=== PATIENT | male | born 1965 | race Caucasian/White ===

== ENCOUNTER → 2017-04-10 | Outpatient (REF) | payer MEDICARE | LOC: M SFHCSACK 07:59 | PROVIDERS: ATTEND Physician Assistant | DX: Z13.220 Encounter for screening for lipoid disorders (principal); Z13.21 Encounter for screening for nutritional disorder; Z53.8 Procedure and treatment not carried out for other reasons ==

== ENCOUNTER → 2017-04-24 | Outpatient (REF) | payer MEDICARE ==
[2017-04-24 16:33] LABS: BASO # 0.1 K/mm3 (0.0-0.2); BASO % 0.5 % (0.0-1.0); EOS # 0.2 K/mm3 (0.0-0.50); EOS % 2.1 % (0.0-3.0); LARGE UNSTAINED CELL # 0.2 K/mm3 (0.0-0.4); LARGE UNSTAINED CELL % 1.5 % (0.0-4.0); LYMPH # 3.4 K/mm3 (1.5-4.5); LYMPH % 26.7 % (24.0-44.0); MEAN CORPUSCULAR HEMOGLOBIN 30.9 pg (27.0-33.0); MEAN CORPUSCULAR HGB CONC 34.5 g/dl (32.0-36.5); MEAN CORPUSCULAR VOLUME 89.7 fl (80.0-96.0); MONO # 0.7 K/mm3 (0.0-0.8); NEUTROPHILS # 7.5 K/mm3 (1.8-7.7); NEUTROPHILS % 63.2 % (36.0-66.0); PLATELET COUNT, AUTOMATED 334 k/mm3 (150-450); RED CELL DISTRIBUTION WIDTH 13.4 % (11.5-14.5); WHITE BLOOD COUNT 11.9 K/mm3 (4.0-10.0)
[2017-04-24 16:39] LABS: ALBUMIN 3.5 GM/DL (3.2-5.2); ALBUMIN/GLOBULIN RATIO 1.13 (1.00-1.93); ALKALINE PHOSPHATASE 94 U/L (45-117); ALT/SGPT 15 U/L (12-78); ANION GAP 7 MEQ/L (8-16); AST/SGOT 12 U/L (15-37); BILIRUBIN,TOTAL 0.7 MG/DL (0.2-1.0); BLOOD UREA NITROGEN 11 MG/DL (7-18); CALCIUM LEVEL 8.8 MG/DL (8.5-10.1); CARBON DIOXIDE LEVEL 29 MEQ/L (21-32); CHLORIDE LEVEL 106 MEQ/L (98-107); CHOLESTEROL LEVEL 156 MG/DL (<200); CREATININE FOR GFR 0.89 MG/DL (0.70-1.30); GLOMERULAR FILTRATION RATE > 60.0 (>56); GLUCOSE, FASTING 75 MG/DL (70-105); POTASSIUM SERUM 4.8 MEQ/L (3.5-5.1); SODIUM LEVEL 142 MEQ/L (136-145); TOTAL PROTEIN 6.6 GM/DL (6.4-8.2); TRIGLYCERIDES LEVEL 88 MG/DL (<150)
== END ==
LOC: M SFHCSACK 09:45
PROVIDERS: ATTEND Physician Assistant
DX: Z13.220 Encounter for screening for lipoid disorders (principal); Z13.21 Encounter for screening for nutritional disorder; G25.81 Restless legs syndrome; G43.909 Migraine, unspecified, not intractable, without status migrainosus; F17.200 Nicotine dependence, unspecified, uncomplicated; Z79.899 Other long term (current) drug therapy

== ENCOUNTER → 2018-04-19 | Outpatient (REF) | payer MEDICARE ==
[2018-04-19 14:07] LABS: BASO # 0.1 10^3/uL (0.0-0.2); BASO % 0.4 % (0.0-1.0); EOS # 0.3 10^3/uL (0.0-0.50); EOS % 2.2 % (0.0-3.0); HEMATOCRIT 47.8 % (42.0-52.0); HEMOGLOBIN 16.1 g/dl (13.5-17.5); IMMATURE GRANULOCYTE % 0.2 % (0-3.0); LYMPH # 4.1 10^3/uL (1.5-4.5); LYMPH % 31.5 % (24.0-44.0); MEAN CORPUSCULAR HEMOGLOBIN 30.2 pg (27.0-33.0); MEAN CORPUSCULAR HGB CONC 33.7 g/dl (32.0-36.5); MEAN CORPUSCULAR VOLUME 89.7 fl (80.0-96.0); MONO # 0.8 10^3/uL (0.0-0.8); MONO % 6.5 % (0.0-5.0); NEUTROPHILS # 7.7 10^3/uL (1.8-7.7); NEUTROPHILS % 59.2 % (36.0-66.0); PLATELET COUNT, AUTOMATED 320 10^3/uL (150-450); RED BLOOD COUNT 5.33 10^6/uL (4.30-6.10); RED CELL DISTRIBUTION WIDTH 13.6 % (11.5-14.5)
[2018-04-19 14:41] LABS: ALBUMIN 3.6 GM/DL (3.2-5.2); ALBUMIN/GLOBULIN RATIO 1.03 (1.00-1.93); ALKALINE PHOSPHATASE 98 U/L (45-117); ALT/SGPT 21 U/L (12-78); ANION GAP 6 MEQ/L (8-16); AST/SGOT 16 U/L (7-37); BILIRUBIN,TOTAL 0.6 MG/DL (0.2-1.0); BLOOD UREA NITROGEN 12 MG/DL (7-18); CALCIUM LEVEL 9.1 MG/DL (8.5-10.1); CARBON DIOXIDE LEVEL 29 MEQ/L (21-32); CHLORIDE LEVEL 104 MEQ/L (98-107); CHOLESTEROL LEVEL 159 MG/DL (<200); CHOLESTEROL RISK RATIO 3.785 (<5); CREATININE FOR GFR 0.97 MG/DL (0.70-1.30); GLOMERULAR FILTRATION RATE > 60.0 (>56); GLUCOSE, FASTING 118 MG/DL (70-100); HDL CHOLESTEROL 42 MG/DL (>40); LDL CHOLESTEROL 89.6 MG/DL (<100); NON-HDL-C 117 MG/DL; SODIUM LEVEL 139 MEQ/L (136-145); TOTAL PROTEIN 7.1 GM/DL (6.4-8.2); TRIGLYCERIDES LEVEL 137 MG/DL (<150)
[2018-04-19 14:44] LABS: TOTAL 25(OH) VITAMIN D 40.4 NG/ML (30.0-100.0)
[2018-04-19 14:47] LABS: POTASSIUM SERUM 5.8 MEQ/L (3.5-5.1)
== END ==
LOC: M SFHCSACK 08:23
DX: Z13.0 Encounter for screening for diseases of the blood and blood-forming organs and certain disorders involving the immune mechanism (principal); Z13.220 Encounter for screening for lipoid disorders; Z13.21 Encounter for screening for nutritional disorder; G25.81 Restless legs syndrome; G43.009 Migraine without aura, not intractable, without status migrainosus; F17.200 Nicotine dependence, unspecified, uncomplicated; M51.37 Other intervertebral disc degeneration, lumbosacral region
CPT/HCPCS: 80053

== ENCOUNTER 2018-05-04 12:11 | Emergency (ER) | payer MEDICARE ==
[2018-05-04] MEDS: NS 1,000 ML IV (16:18)
[2018-05-04] MEDS: MORPHINE 4 MG/ML 1ML VIAL/SYRINGE (J2270) IV (16:19)
[2018-05-04] MEDS ORDERED: ONDANSETRON 4MG/2ML VIAL (J2405) As Ordered (16:22)
[2018-05-04 16:31] LABS: BASO # 0.1 10^3/uL (0.0-0.2); BASO % 0.5 % (0.0-1.0); EOS # 0.2 10^3/uL (0.0-0.50); EOS % 2.1 % (0.0-3.0); HEMOGLOBIN 15.9 g/dl (13.5-17.5); IMMATURE GRANULOCYTE % 0.3 % (0-3.0); LYMPH # 3.8 10^3/uL (1.5-4.5); LYMPH % 35.5 % (24.0-44.0); MEAN CORPUSCULAR HEMOGLOBIN 29.4 pg (27.0-33.0); MEAN CORPUSCULAR HGB CONC 33.1 g/dl (32.0-36.5); MEAN CORPUSCULAR VOLUME 88.9 fl (80.0-96.0); MONO # 0.7 10^3/uL (0.0-0.8); NEUTROPHILS # 5.8 10^3/uL (1.8-7.7); NEUTROPHILS % 54.6 % (36.0-66.0); PLATELET COUNT, AUTOMATED 339 10^3/uL (150-450); RED CELL DISTRIBUTION WIDTH 14.2 % (11.5-14.5); WHITE BLOOD COUNT 10.6 10^3/uL (4.0-10.0)
[2018-05-04] MEDS: ONDANSETRON 4MG/2ML VIAL (J2405) IV (16:35)
[2018-05-04 16:59] LABS: ALBUMIN/GLOBULIN RATIO 1.05 (1.00-1.93); ALKALINE PHOSPHATASE 93 U/L (45-117); ALT/SGPT 18 U/L (12-78); ANION GAP 8 MEQ/L (8-16); AST/SGOT 14 U/L (7-37); BILIRUBIN,DIRECT 0.1 MG/DL (0.0-0.2); BILIRUBIN,TOTAL 0.5 MG/DL (0.2-1.0); BLOOD UREA NITROGEN 11 MG/DL (7-18); CALCIUM LEVEL 9.4 MG/DL (8.5-10.1); CARBON DIOXIDE LEVEL 28 MEQ/L (21-32); CHLORIDE LEVEL 103 MEQ/L (98-107); CREATININE FOR GFR 0.84 MG/DL (0.70-1.30); GLOMERULAR FILTRATION RATE > 60.0 (>56); GLUCOSE, FASTING 73 MG/DL (70-100); LIPASE 105 U/L (73-393); SODIUM LEVEL 139 MEQ/L (136-145); TOTAL PROTEIN 7.8 GM/DL (6.4-8.2)
[2018-05-04] MEDS ORDERED: ISOVUE-370 76% 100ML VIAL (Q9967) As Ordered (17:17)
[2018-05-04 17:40] LABS: KETONE, URINE AUTO RFX NEGATIVE (NEGATIVE); LEUKOCYTE ESTERASE UR AUTO RFX NEGATIVE (NEGATIVE); NITRITE, URINE AUTO RFX NEGATIVE (NEGATIVE); RBC, URINE AUTO RFX 2 /HPF (0-3); SPECIFIC GRAVITY UR AUTO RFX 1.005 (1.002-1.035); SQUAM EPITHELIAL CELL UR AURFX 0 /HPF (0-6); WBC, URINE AUTO RFX 0 /HPF (0-3)
[2018-05-04] MEDS: AZITHROMYCIN 250 MG TAB PO (19:15)
== END 2018-05-04 19:16 | disposition home or self-care (01) ==
LOC: M ED 12:11
DX: J18.9 Pneumonia, unspecified organism (principal); M54.5 Low back pain; H81.09 Meniere's disease, unspecified ear; G25.81 Restless legs syndrome; G43.909 Migraine, unspecified, not intractable, without status migrainosus; F17.210 Nicotine dependence, cigarettes, uncomplicated
CPT/HCPCS: J2270

== ENCOUNTER → 2019-04-28 | Outpatient (REF) | payer MEDICARE ==
[~2019-04-28] MED LIST: AZIT-12 PO; NAPR-885; PERC5TAB12 PO; ROPI3TAB3; TIZANIDINE
[2019-04-28 16:12] LABS: BASO % 0.3 % (0.0-1.0); EOS # 0.2 10^3/uL (0.0-0.50); EOS % 1.9 % (0.0-3.0); HEMATOCRIT 50.3 % (42.0-52.0); HEMOGLOBIN 16.4 g/dl (13.5-17.5); LYMPH # 3.5 10^3/uL (1.5-4.5); LYMPH % 29.9 % (24.0-44.0); MEAN CORPUSCULAR HEMOGLOBIN 30.9 pg (27.0-33.0); MEAN CORPUSCULAR HGB CONC 32.6 g/dl (32.0-36.5); MEAN CORPUSCULAR VOLUME 94.9 fl (80.0-96.0); MONO % 8.5 % (0.0-5.0); NEUTROPHILS % 59.1 % (36.0-66.0); PLATELET COUNT, AUTOMATED 368 10^3/uL (150-450); WHITE BLOOD COUNT 11.8 10^3/uL (4.0-10.0)
[2019-04-28 18:26] LABS: HEMOGLOBIN A1c 5.6 %
== END ==
LOC: M LAB REF 15:03
PROVIDERS: ATTEND Physician Assistant
DX: G43.909 Migraine, unspecified, not intractable, without status migrainosus (principal); E78.00 Pure hypercholesterolemia, unspecified; R73.01 Impaired fasting glucose

== ENCOUNTER → 2019-05-04 | Outpatient (REF) | payer MEDICARE ==
[~2019-05-04] MED LIST changes: +PANT40TA3 PO; +ROPI3TAB3 PO
[2019-05-04 16:55] LABS: ALBUMIN 3.4 GM/DL (3.2-5.2); ALT/SGPT 13 U/L (12-78); BILIRUBIN,TOTAL 0.5 MG/DL (0.2-1.0); BLOOD UREA NITROGEN 13 MG/DL (7-18); CARBON DIOXIDE LEVEL 28 MEQ/L (21-32); CHLORIDE LEVEL 109 MEQ/L (98-107); CHOLESTEROL LEVEL 149 MG/DL (<200); CHOLESTEROL RISK RATIO 4.138 (<5); CREATININE FOR GFR 1.04 MG/DL (0.70-1.30); GLOMERULAR FILTRATION RATE > 60.0 (>56); GLUCOSE, FASTING 79 MG/DL (70-100); HDL CHOLESTEROL 36 MG/DL (>40); LDL CHOLESTEROL 97 MG/DL (<100); NON-HDL-C 113 MG/DL; POTASSIUM SERUM 4.6 MEQ/L (3.5-5.1); SODIUM LEVEL 142 MEQ/L (136-145); TOTAL PROTEIN 6.6 GM/DL (6.4-8.2); TRIGLYCERIDES LEVEL 81 MG/DL (<150)
== END ==
LOC: M SFHCSACK 15:46
PROVIDERS: ATTEND Physician Assistant
DX: E78.00 Pure hypercholesterolemia, unspecified (principal)

== ENCOUNTER 2019-05-09 16:52 | Inpatient (IN) | payer MEDICARE ==
[~2019-05-09] VITALS: Ht 167.6 cm; Wt 67.5 kg
[~2019-05-09 16:52] MED LIST changes: -PANT40TA3 PO; -ROPI3TAB3 PO
[2019-05-09 17:56] LABS: BASO # 0.1 10^3/uL (0.0-0.2); BASO % 0.4 % (0.0-1.0); EOS # 0.3 10^3/uL (0.0-0.5); EOS % 2.2 % (0.0-3.0); HEMATOCRIT 45.6 % (42.0-52.0); HEMOGLOBIN 15.4 g/dl (13.5-17.5); LYMPH # 4.4 10^3/uL (1.5-5.0); LYMPH % 34.9 % (24.0-44.0); MEAN CORPUSCULAR HEMOGLOBIN 30.1 pg (27.0-33.0); MEAN CORPUSCULAR HGB CONC 33.8 g/dl (32.0-36.5); MEAN CORPUSCULAR VOLUME 89.1 fl (80.0-96.0); MONO # 0.9 10^3/uL (0.0-0.8); NEUTROPHILS # 6.9 10^3/uL (1.5-8.5); NEUTROPHILS % 55.3 % (36.0-66.0); PLATELET COUNT, AUTOMATED 366 10^3/uL (150-450); RED BLOOD COUNT 5.12 10^6/uL (4.30-6.10); WHITE BLOOD COUNT 12.5 10^3/uL (4.0-10.0)
[2019-05-09 18:06] LABS: ALBUMIN 3.7 GM/DL (3.2-5.2); ALT/SGPT 13 U/L (12-78); BILIRUBIN,DIRECT 0.2 MG/DL (0.0-0.2); BILIRUBIN,TOTAL 0.6 MG/DL (0.2-1.0); BLOOD UREA NITROGEN 11 MG/DL (7-18); CALCIUM LEVEL 9.6 MG/DL (8.5-10.1); CARBON DIOXIDE LEVEL 26 MEQ/L (21-32); CHLORIDE LEVEL 103 MEQ/L (98-107); CREATININE FOR GFR 1.02 MG/DL (0.70-1.30); GLOMERULAR FILTRATION RATE > 60.0 (>56); GLUCOSE, FASTING 71 MG/DL (70-100); LIPASE 56 U/L (73-393); POTASSIUM SERUM 4.2 MEQ/L (3.5-5.1); SODIUM LEVEL 137 MEQ/L (136-145); TOTAL PROTEIN 6.8 GM/DL (6.4-8.2)
[2019-05-09] MEDS ORDERED: ISOVUE-370 76% 100ML VIAL (Q9967) As Ordered ONE (18:50)
[2019-05-09 19:01] LABS: CK-MB VALUE MASS < 1.0 NG/ML (<3.6); CPK CREATINE PHOSPHOKINASE 93 U/L (39-308); MB/CK RELATIVE INDEX 1.08 (< OR =4); TROPONIN I < 0.02 NG/ML (< 0.10)
--- NOTE | 2019-05-09 19:52 | REP ---
Chest x-ray: Two views. History: Abdomen pain. Comparison chest x-ray: February 09, 2015. Findings: The lungs are symmetrically aerated and clear. Pleural angles are sharp. Heart size is normal. There is no evidence of free subdiaphragmatic air. Pulmonary vasculature is not increased. No bony abnormality. Impression: Negative chest x-ray. Electronically Signed by Ochoa Reyes MD 05/09/2019 07:44 P
--- NOTE | 2019-05-09 20:37 | REPVR ---
EXAM: CT Abdomen and Pelvis Without and With Contrast EXAM DATE/TIME: 05/09/2019 7:28 PM CLINICAL HISTORY: 53 years old, male; Abdominal pain; Epigastric; Additional info: R/O kidney stones and dissection TECHNIQUE: Imaging protocol: Computed tomography of the abdomen and pelvis without and with intravenous contrast. Radiation optimization: All CT scans at this facility use at least one of these dose optimization techniques: automated exposure control; mA and/or kV adjustment per patient size (includes targeted exams where dose is matched to clinical indication); or iterative reconstruction. Contrast material: ISOVUE 370; Contrast volume: 100 ml; Contrast route: IV; COMPARISON: CT ABD/PEL W/IV CONTRAST ONLY 05/04/2018 5:19 PM FINDINGS: Lungs: Mild scarring in the lung bases. Heart: The heart is normal in size. Liver: Normal appearing liver. Gallbladder and bile ducts: Normal gallbladder. Pancreas: Normal appearing pancreas. Spleen: Normal spleen. Adrenals: Normal adrenal glands. Kidneys and ureters: There is a 3 CM cyst of the lower pole left kidney. There is no evidence of hydronephrosis. Stomach and bowel: There is some enhancement and mild thickening of the jejunum which could be secondary to enteritis. Appendix: The cecum is in the right pelvis and the appendix appears within the range of normal. Intraperitoneal space: There is no evidence of pneumoperitoneum. There is no evidence of mesenteric mass. Vasculature: There is opacification of the SMA. There is opacification of the abdominal aorta and no evidence of dissection. There is prominent atherosclerotic plaque formation lower abdominal aorta with calcification and marked irregularity. There is severe irregular atherosclerotic plaque formation of the left iliac artery with a small saccular aneurysm measuring 1.2 CM. There is opacification of both kidneys. Lymph nodes: There is no evidence of lymphadenopathy. Bladder: Normal appearing urinary bladder. Reproductive: Moderate enlargement of the prostate. Bones/joints: There is anterior osteophyte formation of the lumbar spine. Soft tissues: Unremarkable. Other findings: There is opacification of the SMV. IMPRESSION: 1. Opacification of the aorta with no evidence of dissection. 2. Severe atherosclerotic plaque formation left iliac artery with a 1.2 CM small saccular aneurysm. 3. Mild thickening and enhancement of the jejunum could be the result of enteritis. Electronically signed by: Tapan Lowe On 05/09/2019 20:36:49 PM
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
[2019-05-09] MEDS ORDERED: ROPI3TAB3 PO (21:44)
[2019-05-09] MEDS: NS 1,000 ML IV SCH (22:07)
[2019-05-09] MEDS ORDERED: NICOTINE 14 MG/24 HR TRANSDERMAL TD ONE (22:30)
[2019-05-09] MEDS: rOPINIRole 1MG TAB PO SCH (23:16)
[2019-05-09 23:33] VITALS: BP 127/89
[2019-05-10] MEDS: KETOROLAC TROMETHAMINE 10 MG TAB PO PRN ×2 (00:01→12:24)
[2019-05-10] MEDS: METRONIDAZOLE IV SCH ×2 (00:40→08:43)
[2019-05-10] MEDS: DILUENT IV SCH ×2 (00:40→08:43)
[2019-05-10 06:00] VITALS: BP 110/66
--- NOTE | 2019-05-10 07:19 | ECGEPIP ---
[facility] - ED Test Date: 2019-05-09 Pat Name: GLEN HENRY Department: Room: [place] [address] Gender: Male Crane Rigger: : 1965 Requested By: MONI Grier PA-C Order Number: [id number] Reading MD: Lavon Phillips Measurements Intervals [place] Rate: 67 P: 1 NV: 123 QRS: 73 QRSD: 86 T: 52 QT: 355 QTc: 375 Interpretive Statements SINUS RHYTHM NSTTW ABNORMALITIES NO PRIORS FOR COMPARISON Electronically Signed on 05-10-2019 7:19:20 EDT by Lavon Phillips
[2019-05-10 09:11] LABS: HEMATOCRIT 45.2 % (42.0-52.0); HEMOGLOBIN 15.7 g/dl (13.5-17.5); MEAN CORPUSCULAR HEMOGLOBIN 31.5 pg (27.0-33.0); MEAN CORPUSCULAR HGB CONC 34.7 g/dl (32.0-36.5); MEAN CORPUSCULAR VOLUME 90.8 fl (80.0-96.0); PLATELET COUNT, AUTOMATED 331 10^3/uL (150-450); RED BLOOD COUNT 4.98 10^6/uL (4.30-6.10); WHITE BLOOD COUNT 8.1 10^3/uL (4.0-10.0)
[2019-05-10 09:39] LABS: BLOOD UREA NITROGEN 12 MG/DL (7-18); CALCIUM LEVEL 8.8 MG/DL (8.5-10.1); CARBON DIOXIDE LEVEL 25 MEQ/L (21-32); CHLORIDE LEVEL 107 MEQ/L (98-107); CHOLESTEROL LEVEL 130 MG/DL (<200); CHOLESTEROL RISK RATIO 3.823 (<5); CREATININE FOR GFR 1.03 MG/DL (0.70-1.30); GLOMERULAR FILTRATION RATE > 60.0 (>56); GLUCOSE, FASTING 79 MG/DL (70-100); HDL CHOLESTEROL 34 MG/DL (>40); LDL CHOLESTEROL 85 MG/DL (<100); NON-HDL-C 96 MG/DL; POTASSIUM SERUM 4.1 MEQ/L (3.5-5.1); SODIUM LEVEL 140 MEQ/L (136-145); TRIGLYCERIDES LEVEL 57 MG/DL (<150)
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
[2019-05-10 11:13] LABS: HEMOGLOBIN A1c 5.7 %
[2019-05-10] MEDS: NS 1,000 ML IV SCH (11:39)
[2019-05-10 14:00] VITALS: BP 113/73
[2019-05-10] MEDS ORDERED: MORPHINE 30 MG TAB **MSIR PO PRN (15:00)
[2019-05-10] MEDS: metroNIDAZOLE 500 MG in APPROPRIATE DILUENT 1 EA IV SCH ×2 (17:18→22:15)
--- NOTE | 2019-05-10 17:21 | IPNPDOC ---
Text Note Date of Service The patient was seen on 05/10/19. NOTE Subjective: On initial evaluation this morning was comfortable, now uncomfortable, describing severe pain in the abdomen that radiates to the back and down and did not respond to toradol, with moderate response to morphine. ROS: Pertinent negatives: No fever, chills, emesis, diarrhea, hematochezia, hematuria, dysuria or hematemesis Pertinent positives: Episodic abdominal pain up to 05/10 with no clear precipitants. Radiation to back and groin. All other aspects of the 12 point ROS were negative. Objective: VITAL SIGNS: Please see below. GENERAL APPEARANCE: well-developed, well-nourished, in moderate distress, grimacing. HEENT: Normocephalic, atraumatic, mucous members moist and pink CARDIOVASCULAR: Rate and rhythm. No murmurs, rubs or gallops. LUNGS: Clear to auscultation bilaterally on room air ABDOMEN: Bowel sounds are hypoactive. The abdomen is tender with light palpation in the epigastric area and flanks bilaterally,grimacing and in position at one point. MUSCULOSKELETAL: Range of motion is intact in all 4 extremities. INTEGUMENT: Has multiple tattoos NEUROLOGICAL: Cranial nerves II-12 grossly intact. PSYCHIATRIC: Alert and oriented to person, place and time. Assessment: 53-year-old male with past medical history of restless leg syndrome, chronic migraines, Mnire's disease, and chronic back pain who was admitted for evaluation of episodic severe abdominal pain with CT showing jejunal thickening c/f enteritis and incidental small iliac artery saccular aneurysm with otherwise a normal gall bladder, pancreas, appendix. He was seen by vascular surgery that noted patent celiac and SMA with no evidence of clinically significant mesenteric stenosis, however with continuing episodic pain episodes for which we have now consulted GI. PLAN: 1.Abdominal Pain: -Unremarkable WBC, LFTs, lipase CT findings above, noting patent prominent abdominal vasculature, normal gallbladder, pancreas, appendix with mild jejunal thickening -Appreciate vascular surgery recs -Consulted GI, appreciate recs -continue IV metronidazole -Dc toradol, will change to PRN morphine -Will start IV PPI BID (protonix 40 IV BID) empirically per GI 2. RLS Plan: c/w home meds 3. Tobacco abuse. Plan: Tobacco cessation education / nicotine patch DVT Px w SCDs Dispo pending clinical course and GI recs VSKrise, I+O VS, Fishbone, I+O Laboratory Tests 05/09/19 17:23 Red Blood Count 5.12, Mean Corpuscular Volume 89.1, Mean Corpuscular Hemoglobin 30.1, Mean Corpuscular Hemoglobin Concent 33.8, Red Cell Distribution Width 13.4, Neutrophils (%) (Auto) 55.3, Lymphocytes (%) (Auto) 34.9, Monocytes (%) (Auto) 7.0 H, Eosinophils (%) (Auto) 2.2, Basophils (%) (Auto) 0.4, Neutrophils # (Auto) 6.9, Lymphocytes # (Auto) 4.4, Monocytes # (Auto) 0.9 H, Eosinophils # (Auto) 0.3, Basophils # (Auto) 0.1 05/10/19 09:00 Red Blood Count 4.98, Mean Corpuscular Volume 90.8, Mean Corpuscular Hemoglobin 31.5, Mean Corpuscular Hemoglobin Concent 34.7, Red Cell Distribution Width 13.4 Vital Signs Date Time Temp Pulse Resp B/P (MAP) Pulse Ox O2 Delivery O2 Flow Rate FiO2 05/10/19 16:04 20 05/10/19 14:00 97.9 67 113/73 (86) 95 05/09/19 21:39 Room Air I&O- Last 24 Hours up to 6 AM 05/10/19 05:59 Intake Total 200 ml Balance 200 ml OREN CERDA MD May 10, 2019 17:21
--- NOTE | 2019-05-10 18:45 | CR.PDOC ---
General Date of Consultation: May 10, 2019 Consultation Primary physician/ hospitalist: Reason for consult: HPI: --53year Male with chronic back pain, osteoarthritis, Restless leg syndrome, migraine who presented to ED with complaints of epigastric abdominal pain. GI consulted for the same.Patients reports symptoms started on last Thursday acute onset lower abdominal pain and pelvic pain, severe intensity non radiating, no precipitating event, No associated nausea or vomiting, Pain lasted for couple of hours and resolved on its own. Patient had recurrent episodes since Thursday, which was located in upper abdomen and radiating to the back, moderate to severe intensity. Patient reports prior history NSAID use. Pertinent negative GI symptoms: Patient denies fever, sick contacts, recent travel, nausea, vomiting, diarrhea, loss of appetite, early satiety or unintentional weight loss. No history of hematemesis, melena or hematochezia. Patient reports regular bowel movements. Review of Systems: GI: as stated above CVS: No chest pain, No palpitations, No leg swelling. 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 Skin: No rash : No hematuria, No burning sensation of the urine ENT: No ear discharge/ pain, No dysphagia. Eyes: No photophobia. Jaundice Home medications: reviewed. Antithrombotic agents - done Medical h/o: As above. Surgical h/o: None on abdomen. Social h/o: Alcohol prior heavy alcohol use , smoking: current smoker , IVDA/ drugs- denies . Family h/o of GI cancers - None Prior Endoscopies: --- EGD & Colonoscopy : none Prior GI evaluations: none Exam: Vitals: reviewed General: Alert and oriented x 3, not in distress HEENT: NO pallor, no icterus. Normal oropharynx, NO cervical lymph nodes. Chest: symmetric with bilateral clear air entry, CVS: S1, S2 heard, normal, no murmurs . Abdomen: non-distended, no surgical scars, soft, non-tender, no palpable masses, normal bowel sounds heard. Rectal exam: Patient refused / Deferred at this time in view of scheduled colonoscopy. Extremities: no pedal edema, pulses palpable. 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 Moves all extremities Skin: no rash. Labs: reviewed. Imaging: reviewed. Impression: - Atypical upper abdominal pain with intermittent episodes. no other associated GI symptoms. Prior NSAIDs use and normal Labs and CT abdomen showing Jejunal inflammation-- needs further evaluation Recommendations: - Patient educated about the test results, possible differential diagnoses and All questions answered. - Give Pantoprazole 40mg Twice daily. - Diet as tolerated. - Obtain USG abdomen to evaluate for Gall stones. - Will schedule for EGD/ push enteroscopy tomorrow. - The procedure, indications, risks (bleeding, perforation, infection, hypotension, respiratory depression, allergy, need for endotracheal intubation, surgery, colostomy, cardiac arrest, even ), benefits, limitations (e.g., missing a lesion), and all other alternatives (including no intervention) were explained to the patient who understood and agreed for the procedure. - NPO from midnight. Can have clear liquid until 8 AM. Plan of care discussed with patient and primary team. Patient verbalized understanding and agreed with the plan. Laboratory Data CBC/BMP Laboratory Tests 05/10/19 09:00 Red Blood Count 4.98, Mean Corpuscular Volume 90.8, Mean Corpuscular Hemoglobin 31.5, Mean Corpuscular Hemoglobin Concent 34.7, Red Cell Distribution Width 13.4 Allergies Coded Allergies: No Known Allergies (Unverified , 05/09/19) Home Medications Scheduled Ropinirole HCl (Ropinirole HCl) 3 Mg Tablet, 3 MG PO QHS, (Reported) JEREMIAH JAIMES MD May 10, 2019 18:45
[2019-05-10 20:00] VITALS: BP 98/57
[2019-05-10] MEDS: rOPINIRole 1MG TAB PO SCH (20:36)
[2019-05-10] MEDS: PANTOPRAZOLE 40MG INJ (PROTONIX) (C9113) IV SCH (20:36)
[2019-05-11] MEDS: NS 1,000 ML IV SCH ×2 (00:20→14:30)
[2019-05-11] MEDS: metroNIDAZOLE 500 MG in APPROPRIATE DILUENT 1 EA IV SCH ×2 (05:35→11:20)
[2019-05-11 05:36] VITALS: BP 106/64
[2019-05-11 07:01] LABS: HEMATOCRIT 41.8 % (42.0-52.0); MEAN CORPUSCULAR HEMOGLOBIN 30.4 pg (27.0-33.0); MEAN CORPUSCULAR HGB CONC 33.5 g/dl (32.0-36.5); MEAN CORPUSCULAR VOLUME 90.9 fl (80.0-96.0); PLATELET COUNT, AUTOMATED 294 10^3/uL (150-450)
[2019-05-11 07:27] LABS: BLOOD UREA NITROGEN 11 MG/DL (7-18); CALCIUM LEVEL 7.8 MG/DL (8.5-10.1); CARBON DIOXIDE LEVEL 22 MEQ/L (21-32); CHLORIDE LEVEL 111 MEQ/L (98-107); CREATININE FOR GFR 0.87 MG/DL (0.70-1.30); GLOMERULAR FILTRATION RATE > 60.0 (>56); GLUCOSE, FASTING 111 MG/DL (70-100); POTASSIUM SERUM 3.8 MEQ/L (3.5-5.1); SODIUM LEVEL 141 MEQ/L (136-145)
[2019-05-11 08:00] VITALS: BP 105/58
[2019-05-11] MEDS: PANTOPRAZOLE 40MG INJ (PROTONIX) (C9113) IV SCH (09:44)
--- NOTE | 2019-05-11 11:26 | REP ---
RIGHT UPPER QUADRANT ULTRASOUND: Real-time sonographic evaluation of the right upper quadrant performed. No gallstones are seen in the gallbladder. There is no gallbladder wall thickening or pericholecystic fluid. There is no intrahepatic or extrahepatic biliary dilatation, common bile duct measuring 4 mm. Liver and pancreas demonstrate no gross mass. The pancreas is not optimally seen due to overlying bowel gas. Right kidney demonstrates no hydronephrosis, normal size 10.4 cm in length. There is a lower pole cyst 1.1 cm in diameter. IMPRESSION: Essentially negative right upper quadrant ultrasound. Electronically Signed by Everett Tejeda MD 05/12/2019 08:08 A
--- NOTE | 2019-05-11 12:57 | IPNPDOC ---
Text Note Date of Service The patient was seen on 05/11/19. NOTE Subjective: Reported that he feels great this morning. He has felt well since around 8PM last night. He tolerated his dinner well and has been having liquids in anticipation of his EGD this morning. ROS: Pertinent negatives: No fever, chills, emesis, diarrhea, hematochezia, hematu brendan, dysuria, hematemesis or abdominal pain at this time since yesterday evening Pertinent positives: Had severe abdominal pain up to 9/10 on a pain scale yesterday afternoon that lasted for hours and responded well to morphine without any clear precipitants. Reports that it radiated to the back and towards the groin. All other aspects of the 12 point ROS were negative. Objective: VITAL SIGNS: Please see below. GENERAL APPEARANCE: well-developed, well-nourished, sitting up in bed shortly after a shower HEENT: Normocephalic, atraumatic, mucous members moist and pink, long hair combed neatly to the back CARDIOVASCULAR: Rate and rhythm. No murmurs, rubs or gallops. LUNGS: Clear to auscultation bilaterally and breathing comfortably on room air ABDOMEN: Normoactive bowel sounds, mild discomfort to palpation in the epigastrum and tapping of flanks bilaterally MUSCULOSKELETAL: Range of motion is intact in all 4 extremities, normal gait NEUROLOGICAL: Cranial nerves II-12 grossly intact, normal gait PSYCHIATRIC: Alert and oriented to person, place and time. Assessment: 53-year-old male with a history of restless leg syndrome, chronic migraines, Mnire's disease, and chronic back pain who was admitted for evaluation of episodic severe abdominal pain with CT showing jejunal thickening c/f enteritis and incidental small iliac artery saccular aneurysm with otherwise a normal gall bladder, pancreas, appendix and cleared by vascular surgery to have no evidence of clinically significant mesenteric stenosis with patent SMA and celiac arteries that could explain his degree of symptoms and their episodic nature, thus GI consulted and he is now pending an EGD/push enteroscopy and was started on an empiric PPI. PLAN: 1.Abdominal Pain: no pain since last night though it is episodic in nature. -Unremarkable WBC, LFTs, lipase CT findings above, noting patent prominent abdominal vasculature, normal gallbladder, pancreas, appendix with mild jejunal thickening -Appreciate vascular surgery recs -Consulted GI, appreciate recs --> pending EGD/push enteroscopy this afternoon and was started on protonix IV BID -continue PRN morphine for pain -Ordered or gallbladder US per GI recs to evaluate for stones - DC empiric flagyl, low suspicion for infection 2. RLS Plan: c/w home meds 3. Tobacco use -Started a cessation discussion for which he said he would like to think about it. Education provided -nicotine patch DVT Px w SCDs Dispo pending clinical course and GI recs VS,Brandi, I+O VS, Brandi, I+O Laboratory Tests 05/11/19 06:32 Red Blood Count 4.60, Mean Corpuscular Volume 90.9, Mean Corpuscular Hemoglobin 30.4, Mean Corpuscular Hemoglobin Concent 33.5, Red Cell Distribution Width 13.4, Calcium Level 7.8 L Vital Signs Date Time Temp Pulse Resp B/P (MAP) Pulse Ox O2 Delivery O2 Flow Rate FiO2 05/11/19 08:00 97.5 80 18 105/58 (74) 93 05/09/19 21:39 Room Air I&O- Last 24 Hours up to 6 AM 05/11/19 06:00 Intake Total 1140 ml Output Total 525 ml Balance 615 ml OREN CERDA MD May 11, 2019 12:57
[2019-05-11] MEDS ORDERED: PROPOFOL 200 MG/20 ML VIAL As Ordered ONE ×2 (13:18→13:31)
[2019-05-11] MEDS ORDERED: LIDOCAINE 2% INJ 100 MG/5 ML SDV (FOR ANES.) As Ordered ONE (13:18)
--- NOTE | 2019-05-11 13:49 | ROOR ---
Patient Name: Buck Rousseau Procedure Date: 05/11/2019 1:16 PM Date of : 1965 Age: 53 [facility]: [facility] Gender: Male Note Status: Finalized Procedure: Upper GI endoscopy Indications: Upper abdominal pain, Abnormal CT of the GI tract Providers: Aníbal Castanon MD Referring MD: RONI Silverio Pa-c Requesting Provider: Medicines: Monitored Anesthesia Care Complications: No immediate complications. Procedure: Pre-Anesthesia Assessment: - Prior to the procedure, a History and Physical was performed, and patient medications and allergies were reviewed. The patient is competent. The risks and benefits of the procedure and the sedation options and risks were discussed with the patient. All questions were answered and informed consent was obtained. Patient identification and proposed procedure were verified by the physician, the nurse and the anesthesiologist in the procedure room. Mental Status Examination: alert and oriented. Airway Examination: normal oropharyngeal airway and neck mobility. Respiratory Examination: clear to auscultation. CV Examination: normal. Prophylactic Antibiotics: The patient does not require prophylactic antibiotics. Prior Anticoagulants: The patient has taken no previous anticoagulant or antiplatelet agents. ASA Grade Assessment: II - A patient with mild systemic disease. After reviewing the risks and benefits, the patient was deemed in satisfactory condition to undergo the procedure. The anesthesia plan was to use monitored anesthesia care (MAC). Immediately prior to administration of medications, the patient was re-assessed for adequacy to receive sedatives. The heart rate, respiratory rate, oxygen saturations, blood pressure, adequacy of pulmonary ventilation, and response to care were monitored throughout the procedure. The physical status of the patient was re-assessed after the procedure. The Endoscope was introduced through the mouth, and advanced to the proximal jejunum. The upper GI endoscopy was accomplished without difficulty. The patient tolerated the procedure well. Findings: The examined esophagus was normal. The Z-line was regular and was found 40 cm from the incisors. Scattered moderate inflammation characterized by erosions, erythema and granularity was found in the gastric antrum. Biopsies were taken with a cold forceps for Helicobacter pylori testing. Verification of patient identification for the specimen was done by the physician and nurse using the patient's name, date and medical record number. Estimated blood loss was minimal. Diffuse moderate inflammation characterized by congestion (edema), erythema and granularity was found in the duodenal bulb and in the second portion of the duodenum. Biopsies were taken with a cold forceps for histology. The examined jejunum was normal. Biopsies were taken with a cold forceps for histology. Impression: - Normal esophagus. - Z-line regular, 40 cm from the incisors. - Gastritis. Biopsied. - Duodenitis. Biopsied. - Normal examined jejunum. Biopsied. Recommendation: - Patient has a contact number available for emergencies. The signs and symptoms of potential delayed complications were discussed with the patient. Return to normal activities tomorrow. Written discharge instructions were provided to the patient. - Resume previous diet. - Continue present medications. 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 - Await pathology results. - If Biopsy shows H. pylori will need therapy with antibiotic course.. - Telephone GI clinic for pathology results in 2 weeks. - Return to primary care physician. Aníbal Castanon MD Aníbal Castanon MD 05/11/2019 1:49:11 PM Electronically signed by Aníbal Castanon MD Number of Addenda: 0 Note Initiated On: 05/11/2019 1:16 PM Estimated Blood Loss: Estimated blood loss was minimal.
[2019-05-11 14:15] VITALS: BP 116/69
[2019-05-11 14:45] VITALS: BP 125/69
[2019-05-11 16:00] VITALS: BP 131/80
[2019-05-11] MEDS ORDERED: PANT40TA3 PO (19:40)
[2019-05-11 19:52] VITALS: BP 120/75
--- NOTE | 2019-05-11 21:26 | DS.PDOC ---
Discharge Summary General Date of Admission May 11, 2019 at 11:47 Date of Discharge 05/11/2019 Attending Physician: OREN CERDA MD Specialist/Consultants Involve: JEREMIAH JAIMES MD Discharge Summary PROCEDURES PERFORMED DURING STAY: EGD on 05/11/2019 ADMITTING DIAGNOSES: 1. Abdominal pain presumed secondary to mesenteric adenitis DISCHARGE DIAGNOSES: 1. Gastritis 2. Duodenitis COMPLICATIONS/CHIEF COMPLAINT: Abdominal Pain. HISTORY OF PRESENT ILLNESS: 53-year-old man with a history of restless leg syndrome and smoking who presented with episodic severe sharp epigastric abdominal pain that radiated to the back and bilateral flank pain of a few days. He reports that it started in the preceding week and resolved after a few hours. He went to see his primary care provider who thought that it might be have been a kidney stones and to return if the pain recurred. 3 days later shortly after a sandwich, the pain recurred remained present and prompted is presentation to the ED. HOSPITAL COURSE: He was admitted for evaluation of the episodic severe abdominal pain. Initial evaluation showed mild leukocytosis that resolved promptly, normal LFTs, lipase, BMP, while a CT abdomen/pelvis showed jejunal thickening c/f enteritis and i ncidental small iliac artery saccular aneurysm with otherwise a normal gall bladder, pancreas, appendix. He was evaluated by vascular surgery for concern of mesenteric adenitis that reviewed the imaging and concluded there was no evidence of clinically significant mesenteric stenosis with patent SMA and celiac arteries that could explain his degree of symptoms and their episodic nature. Despite a grossly negative work up , his symptoms persisted with episodic severe pain that lasted several hours without a clear precipitant and ultimately GI was consulted that recommended empiric PPI, a dedicated gall bladder ultrasound and and EGD. After starting the PPI, he did not have further pain episodes, and the abdominal ultrasound showed a normal gall bladder without stones while an EGD showed gastritis and duodenitis with several biopsies taken. He is now being discharged home on pantoprazole 40mg daily and is to call the GI clinic to follow up his biopsy results in 2 weeks. DISCHARGE MEDICATIONS: Please see below. ALLERGIES: Please see below. PHYSICAL EXAMINATION ON DISCHARGE: VITAL SIGNS: Please see below. GENERAL APPEARANCE: well-developed, well-nourished, sitting up in bed HEENT: Normocephalic, atraumatic, mucous members moist and pink, long hair combed neatly to the back CARDIOVASCULAR: Rate and rhythm. No murmurs, rubs or gallops. LUNGS: Clear to auscultation bilaterally and breathing comfortably on room air ABDOMEN: Normoactive bowel sounds, no tender to palpation, no flank pain this evening MUSCULOSKELETAL: Range of motion is intact in all 4 extremities, normal gait NEUROLOGICAL: Cranial nerves II-12 grossly intact, normal gait PSYCHIATRIC: Alert and oriented to person, place and time. LABORATORY DATA: Please see below. IMAGIN05/11/2019: EGD: Impression: - Normal esophagus. Gastritis. Biopsied. Duodenitis. Biopsied. Normal examined jejunum. Biopsied. 05/11/2019: Gall bladder US: Essentially negative right upper quadrant ultrasound. CT abdomen/pelvis, no contrast: 1. Opacification of the aorta with no evidence of dissection. 2. Severe atherosclerotic plaque formation left iliac artery with a 1.2 CM small saccular aneurysm. 3. Mild thickening and enhancement of the jejunum could be the result of enteritis. PROGNOSIS: Good ACTIVITY: As tolerated DIET: As tolerated DISCHARGE PLAN: Home with PCP follow up and to call GI clinic for biopsy results within two weeks. DISPOSITION: , Self-Care. DISCHARGE INSTRUCTIONS: Home with PCP follow up and to call GI clinic for biopsy results within two weeks. ITEMS TO FOLLOWUP ON ON OUTPATIENT: 1. Abdominal pain 2. Gastritis and duodenitis now on a PPI 3. EGD biopsy follow up 4. Smoking cessation DISCHARGE CONDITION: Good TIME SPENT ON DISCHARGE: Greater than 30 minutes. Vital Signs/I&Os Vital Signs Date Time Temp Pulse Resp B/P (MAP) Pulse Ox O2 Delivery O2 Flow Rate FiO2 05/11/19 19:52 98.0 63 16 120/75 (90) 95 05/09/19 21:39 Room Air I&O- Last 24 Hours up to 6 AM 05/11/19 06:00 Intake Total 1140 ml Output Total 525 ml Balance 615 ml Laboratory Data Labs 24H Laboratory Tests 2 05/11/19 06:32: Nucleated Red Blood Cells % (auto) 0.0, Anion Gap 8, Glomerular Filtration Rate > 60.0, Blood Urea Nitrogen 11, Creatinine 0.87, Sodium Level 141, Potassium Level 3.8, Chloride Level 111H, Carbon Dioxide Level 22, Calcium Level 7.8L CBC/BMP Laboratory Tests 05/11/19 06:32 Red Blood Count 4.60, Mean Corpuscular Volume 90.9, Mean Corpuscular Hemoglobin 30.4, Mean Corpuscular Hemoglobin Concent 33.5, Red Cell Distribution Width 13.4, Calcium Level 7.8 L Discharge Medications Scheduled Pantoprazole Sodium (Pantoprazole Sodium) 40 Mg Tablet.dr, 40 MG PO DAILY Ropinirole HCl (Ropinirole HCl) 3 Mg Tablet, 3 MG PO QHS, (Reported) Allergies Coded Allergies: No Known Allergies (Unverified , 05/09/19) OREN CERDA MD May 11, 2019 21:26
== END 2019-05-11 19:54 | disposition home or self-care (01) | DRG 392 ==
LOC: M ED 16:52 → M ED INP 16:53 → M MS4PR 23:30 → OBSVTOIN 05-11 11:47
PROVIDERS: ADMIT Internal Medicine; ATTEND Internal Medicine
PROC: 0DB98ZX Excision of Duodenum, Via Natural or Artificial Opening Endoscopic, Diagnostic (ICD-10-PCS; 2019-05-11)
PROC: 0DBA8ZX Excision of Jejunum, Via Natural or Artificial Opening Endoscopic, Diagnostic (ICD-10-PCS; 2019-05-11)
PROC: 0DB68ZX Excision of Stomach, Via Natural or Artificial Opening Endoscopic, Diagnostic (ICD-10-PCS; principal; 2019-05-11 13:00)
DX: K29.70 Gastritis, unspecified, without bleeding (principal); I72.3 Aneurysm of iliac artery; G25.81 Restless legs syndrome; F17.200 Nicotine dependence, unspecified, uncomplicated; G40.909 Epilepsy, unspecified, not intractable, without status epilepticus; M19.90 Unspecified osteoarthritis, unspecified site; K29.80 Duodenitis without bleeding